=== PATIENT | female | born 1945 | race Caucasian/White ===

== ENCOUNTER 2021-02-16 10:18 | Day surgery (SDC) | payer MEDICARE, OTHER ==
[~2021-02-16] VITALS: Ht 165.1 cm; Wt 65.4 kg
[2021-02-16] MEDS ORDERED: CLIMARA1 EACH (10:49)
[2021-02-16] MEDS ORDERED: MEDR2.5 (10:49)
== END 2021-02-16 13:03 | disposition home or self-care (01) ==
LOC: ORSCSDS 10:18
PROVIDERS: Ophthalmology
PROC: 08RK3JZ Replacement of Left Lens with Synthetic Substitute, Percutaneous Approach (ICD-10-PCS; principal; 2021-02-16 12:00)
DX: H25.12 Age-related nuclear cataract, left eye (principal)
CPT/HCPCS: J2001; J2250; J3010; J3301; J7040; V2632

== ENCOUNTER 2021-04-13 07:17 | Day surgery (SDC) | payer MEDICARE, OTHER ==
[~2021-04-13] VITALS: Ht 165.1 cm; Wt 67.4 kg
[~2021-04-13 07:17] MED LIST: CLIMARA1 EACH; MEDR2.5
[2021-04-13] MEDS ORDERED: XARELTO20 MG PO (07:43)
[2021-04-13] MEDS ORDERED: TIMO.25OPS BOTHEYES (07:43)
== END 2021-04-13 09:30 | disposition home or self-care (01) ==
LOC: ORSCSDS 07:17
PROVIDERS: Ophthalmology
PROC: 08RJ3JZ Replacement of Right Lens with Synthetic Substitute, Percutaneous Approach (ICD-10-PCS; principal; 2021-04-13 08:30)
DX: H25.11 Age-related nuclear cataract, right eye (principal); I48.91 Unspecified atrial fibrillation; Z79.01 Long term (current) use of anticoagulants; Z79.899 Other long term (current) drug therapy
CPT/HCPCS: J2001; J2250; J3301; J7040; V2632

== ENCOUNTER 2021-06-28 08:26 | Day surgery (SDC) | payer MEDICARE, OTHER ==
[~2021-06-28 08:26] MED LIST changes: +TIMO.25OPS BOTHEYES; +XARELTO20 MG PO
== END 2021-07-04 23:27 | disposition home or self-care (01) ==
LOC: MOI MAM 08:26
DX: N60.22 Fibroadenosis of left breast (principal); R92.0 Mammographic microcalcification found on diagnostic imaging of breast
CPT/HCPCS: 19081; 88305; 88342; A4648

== ENCOUNTER → 2022-03-03 | Outpatient (CLI) | payer MEDICARE, OTHER | LOC: LAB SHORT 12:59 → LAB 12:59 | DX: M54.50 Low back pain, unspecified (principal); R31.9 Hematuria, unspecified | CPT/HCPCS: 87086 ==

== ENCOUNTER → 2024-03-27 | Outpatient (CLI) | payer MEDICARE, OTHER ==
[2024-04-03 08:11] LABS: HPV HIGH RISK BY TMA Not Detected; HPV SOURCE Cervical
== END | disposition home or self-care (01) ==
LOC: LAB 14:10 → LAB SHORT 14:10
PROVIDERS: Internal Medicine
DX: Z12.4 Encounter for screening for malignant neoplasm of cervix (principal)
CPT/HCPCS: 87624; G0123